=== PATIENT | female | born 1965 | race Caucasian/White ===

== ENCOUNTER 2017-09-20 20:18 | Emergency (ER) | payer SELFPAY ==
[~2017-09-20] VITALS: Ht 162.6 cm; Wt 59.0 kg
[2017-09-20 20:35] VITALS: BP 134/52
== END 2017-09-20 22:05 | disposition left against medical advice (07) ==
LOC: ER 21:25
DX: F41.9 Anxiety disorder, unspecified (principal); Z53.21 Procedure and treatment not carried out due to patient leaving prior to being seen by health care provider